=== PATIENT | male | born 1995 | race Two or more races ===

== ENCOUNTER 2016-11-08 22:21 | Emergency (ER) | payer OTHER ==
[~2016-11-08] VITALS: Ht 180.3 cm; Wt 90.7 kg
[2016-11-09 01:21] VITALS: BP 119/68
== END 2016-11-09 01:22 ==
LOC: ER 22:23
DX: S09.90XA Unspecified injury of head, initial encounter (principal); S80.211A Abrasion, right knee, initial encounter; S80.811A Abrasion, right lower leg, initial encounter; S50.812A Abrasion of left forearm, initial encounter; R51 Headache; Y04.2XXA Assault by strike against or bumped into by another person, initial encounter; Y93.89 Activity, other specified; Y92.9 Unspecified place or not applicable; Y99.9 Unspecified external cause status
CPT/HCPCS: 70450; 99284; A4606; A6402; Z7610